=== PATIENT | female | born 1995 | race Caucasian/White ===

== ENCOUNTER 2024-05-08 19:24 | Inpatient (IN) | payer MEDICAID ==
[2024-05-08] MEDS ORDERED: TRANEXAMIC 1,000 MG/100ML-NACL 1,000 MG in EMPTY BAG 1 BAG IV PRN (21:08)
[2024-05-08] MEDS ORDERED: TERBUTALINE 1 MG/ML VIAL SQ PRN (21:08)
[2024-05-08] MEDS ORDERED: OXYTOCIN 10 UNIT/ML 1 ML VIAL IM PRN (21:08)
[2024-05-08] MEDS ORDERED: CARBOPROST TROMETHAMINE 250 MCG/ML 1 ML AMP IM PRN (21:08)
[2024-05-08] MEDS ORDERED: miSOPROStoL 200 MCG TAB PO PRN (21:08)
[2024-05-08] MEDS ORDERED: METHYLERGONOVINE 0.2 MG/ML 1 ML AMP IM PRN (21:08)
[2024-05-08] MEDS ORDERED: miSOPROStoL 200 MCG TAB RECTAL PRN (21:08)
[2024-05-08 21:40] LABS: Basophils % (A) 0 %; Eosinophils # (A) 0.1 k/uL (0-0.7); Eosinophils % (A) 1 %; HCT 33.6 % (34.0-46.0); HGB 10.6 gm/dL (11.4-16.0); Hypochromasia Moderate; Lymphocytes # (A) 1.6 k/uL (1.0-4.8); Lymphocytes % (A) 15 %; MCH 25.9 pg (25.0-35.0); MCHC 31.5 g/dL (31.0-37.0); MCV 82.2 fL (80.0-100.0); Mean Platelet Volume 8.3; Monocytes # (A) 0.2 k/uL (0-1.0); Monocytes % (A) 2 %; Neutrophils # (A) 8.5 k/uL (1.3-7.7); Neutrophils % (A) 80 %; Platelet Count 284 k/uL (150-450); RBC 4.08 m/uL (3.80-5.40); RDW 14.7 % (11.5-15.5); WBC 10.6 k/uL (3.8-10.6)
[2024-05-08] MEDS: LACTATED RINGERS 1,000 ML IV SCH (21:42)
[2024-05-08] MEDS ORDERED: ROPIVACAINE 5 MG/ML 30 ML VIAL ONE (22:05)
[2024-05-08] MEDS ORDERED: SODIUM CHLORIDE 0.9% 250 ML BAG ONE (22:05)
[2024-05-08] MEDS ORDERED: fentaNYL (PF) 50 MCG/ML 5 ML AMP ONE (22:05)
[2024-05-09] MEDS: ONDANSETRON 4 MG/2 ML VIAL IVP PRN (04:16)
[2024-05-09] MEDS: LIDOCAINE 0.5% (PF) 5 MG/ML (50 ML SDV) SQ PRN (07:27)
[2024-05-09] MEDS: OXYTOCIN 30 UNITS/500 ML NS 30 UNIT in SALINE 1 500ML.BAG IV SCH (07:28)
[2024-05-09] MEDS: ROPIVACAINE 225 MG, fentaNYL (PF). 450 MCG in SODIUM CHLORIDE 0.9% 171 ML EPIDURAL ONE (08:05)
[2024-05-09] MEDS ORDERED: ZOLPIDEM 5 MG TAB PO PRN (08:43)
[2024-05-09] MEDS ORDERED: diphenhydrAMINE 50 MG/ML 1 ML VIAL IVP PRN ×2 (08:43)
[2024-05-09] MEDS ORDERED: diphenhydrAMINE 25 MG CAP PO PRN (08:43)
[2024-05-09] MEDS ORDERED: LANOLIN CREAM 1 GM TUBE TOPICAL PRN (08:43)
[2024-05-09] MEDS ORDERED: SIMETHICONE 80 MG CHEWABLE PO PRN (08:43)
[2024-05-09] MEDS ORDERED: BENZOCAINE/MENTHOL SPRAY 1 GM/SPRAY AEROSOL TOPICAL PRN (08:43)
[2024-05-09] MEDS ORDERED: HYDROCORTISONE 2.5% RECTAL CREAM 30 GM TUBE RECTAL PRN (08:43)
[2024-05-09] MEDS ORDERED: diphenhydrAMINE 50 MG CAP PO PRN (08:43)
[2024-05-09] MEDS: IBUPROFEN 800 MG TAB PO PRN (08:52)
[2024-05-09] MEDS: ACETAMINOPHEN TAB 500 MG TAB PO PRN (12:42)
[2024-05-09] MEDS ORDERED: ACETAMINOPHEN ORAL SUSP 160 MG/5 ML CUP PO SCH (16:00)
[2024-05-09] MEDS: SENNOSIDES-DOCUSATE SODIUM 1 EACH TAB PO SCH (20:20)
[2024-05-09 23:36] VITALS: PULSE 76
[2024-05-10 06:43] LABS: Basophils % (A) 0 %; Eosinophils % (A) 1 %; HCT 27.6 % (34.0-46.0); Hypochromasia Marked; Lymphocytes # (A) 2.3 k/uL (1.0-4.8); Lymphocytes % (A) 23 %; MCH 26.7 pg (25.0-35.0); MCHC 32.2 g/dL (31.0-37.0); MCV 82.9 fL (80.0-100.0); Mean Platelet Volume 8.7; Monocytes # (A) 0.4 k/uL (0-1.0); Monocytes % (A) 4 %; Neutrophils # (A) 6.8 k/uL (1.3-7.7); Neutrophils % (A) 69 %; Platelet Count 226 k/uL (150-450); RBC 3.33 m/uL (3.80-5.40); RDW 14.8 % (11.5-15.5); WBC 9.8 k/uL (3.8-10.6)
[2024-05-10 06:55] LABS: HGB 8.9 gm/dL (11.4-16.0)
[2024-05-10 08:35] VITALS: BP 117/76; RESP 16; TEMP 97.5
--- NOTE | 2024-05-10 10:29 | P.PROBDLV ---
Vaginal Delivery Note - . Vaginal Delivery Note: 28 year old presents at 39 weeks complaining of contractions. Her cervix did make change in triage. When she was 7-1/2 cm at about 120 in the morning she spontaneously ruptured and clear fluid was noted. She was uncomfortable despite an epidural but heart tones remained category 1. After several position changes She was completely dilated around 5 in the morning. She pushed, delivered a viable female infant over intact perineum under epidural anesthesia at 7:15 AM. Head delivered OP, Anterior shoulder, Which was the left shoulder, was delivered gentle downward guidance for by posterior shoulder and rest of body. Nose and mouth bulb suctioned, cord clamped and cut, infant placed mother's abdomen. Apgars 8, 9, weight 9 pounds. Placenta delivered spontaneously, intact with three-vessel cord at 7:18 AM. Vagina, cervix, perineum inspected. First-degree midline laceration was repaired with 3-0 Vicryl. Estimated blood loss 150 mL. Mother and baby in stable condition.
--- NOTE | 2024-05-10 10:29 | P.HPOB ---
History of Present Illness H&P Date: 05/10/24 Chief Complaint: labor 28 year old presents at 39 weeks complaining of contractions. Her cervix did make change in triage. heart tones category 1 Review of Systems All systems: negative Constitutional: Denies chills, Denies fever Eyes: denies blurred vision, denies pain Ears, nose, mouth and throat: Denies headache, Denies sore throat Cardiovascular: Denies chest pain, Denies shortness of breath Respiratory: Denies cough Gastrointestinal: Denies abdominal pain, Denies diarrhea, Denies nausea, Denies vomiting Genitourinary: Denies dysuria, Denies hematuria Musculoskeletal: Denies myalgias Integumentary: Denies pruritus, Denies rash Neurological: Denies numbness, Denies weakness Psychiatric: Denies anxiety, Denies depression Endocrine: Denies fatigue, Denies weight change Past Medical History History of Any Multi-Drug Resistant Organisms: None Reported Past Surgical History: Adenoidectomy Additional Past Surgical History / Comment(s): Adenoids removed in childhood. [place] teeth extraction Past Anesthesia/Blood Transfusion Reactions: Postoperative Nausea & Vomiting (PONV) Past Psychological History: No Psychological Hx Reported Smoking Status: Never smoker - Past Family History Father Family Medical History: Hypertension, Thyroid Disorder Mother Additional Family Medical History / Comment(s): Anemia Medications and Allergies Home Medications Medication Instructions Recorded Confirmed Type Pnv No.154/Iron Fum/Folic Acid 1 tablet PO DAILY 04/30/24 05/08/24 History [ Plus Vitamin Tablet] Allergies Allergy/AdvReac Type Severity Reaction Status Date / Time No Known Allergies Allergy Verified 05/08/24 19:29 Exam Osteopathic Statement: *. No significant issues noted on an osteopathic structural exam other than those noted in the History and Physical/Consult. Vital Signs Temp Pulse Resp BP Pulse Ox 05/10/24 08:00 97.5 F L 76 16 117/76 05/09/24 23:35 97.9 F 76 18 116/75 98 05/09/24 20:29 97.9 F 91 18 122/71 98 05/09/24 16:00 97.5 F L 89 18 125/79 97 05/09/24 12:00 98.2 F 96 16 109/69 95 Intake and Output 05/09/24 05/10/24 05/10/24 22:59 06:59 14:59 Intake Total 1000 Balance 1000 Intake: Oral 1000 Other: # Voids 2 Heart: Regular rate and rhythm Lungs: Clear to auscultation bilaterally Abdomen: Soft, nontender Extremities: Negative Homans sign Results Result Diagrams: 05/10/24 05:45 Abnormal Lab Results - Last 24 Hours (Table) 05/10/24 Range/Units 05:45 RBC 3.33 L (3.80-5.40) m/uL Hgb 8.9 L D (11.4-16.0) gm/dL Hct 27.6 L (34.0-46.0) % Assessment and Plan (1) Normal labor Current Visit: Yes Status: Acute Code(s): O80 - ENCOUNTER FOR FULL-TERM UNCOMPLICATED DELIVERY; Z37.9 - OUTCOME OF DELIVERY, UNSPECIFIED SNOMED Code(s): 12017514 Plan: 1. admit to [facility] 2. expectant management 3. anticipate normal vaginal delivery
--- NOTE | 2024-05-10 10:30 | P.DS ---
Providers Date of admission: 05/08/24 21:01 Expected date of discharge: 05/10/24 Attending physician: Alexia Bartholomew MD Primary care physician: Stated None - Discharge Diagnosis(es) (1) Normal labor Current Visit: Yes Status: Resolved (2) Status post normal delivery Current Visit: Yes Status: Acute Hospital Course: Presented in labor. She underwent a normal vaginal delivery. course was uneventful. She denies nausea, vomiting, chest pain, shortness of breath or calf pain. Patient will be discharged home day #1 in stable condition to follow-up with Dr. Bartholomew in 6 weeks. Plan - Discharge Summary New Discharge Prescriptions: No Action Pnv No.154/Iron Fum/Folic Acid [ Plus Vitamin Tablet] 1 tablet PO DAILY Discharge Medication List Pnv No.154/Iron Fum/Folic Acid [ Plus Vitamin Tablet] 1 tablet PO DAILY 04/30/24 [History]
== END 2024-05-10 12:45 | disposition home or self-care (01) | DRG 807 ==
LOC: FBPOP 19:24 → 4FBP 21:01
PROVIDERS: ADMIT Obstetrics & Gynecology; ATTEND Obstetrics & Gynecology
PROC: 10E0XZZ Delivery of Products of Conception, External Approach (ICD-10-PCS; principal; 2024-05-10)
PROC: 0HQ9XZZ Repair Perineum Skin, External Approach (ICD-10-PCS; 2024-05-10)
DX: O32.8XX0 Maternal care for other malpresentation of fetus, not applicable or unspecified (principal); Z37.0 Single live birth; O70.0 First degree perineal laceration during delivery; Z3A.39 39 weeks gestation of pregnancy
CPT/HCPCS: 59025; 85025; 86850; 86900; 86901; 99213